=== PATIENT | female | born 1985 | race Caucasian/White ===

== ENCOUNTER → 2021-06-20 | Outpatient (REF) | payer OTHER ==
[2021-06-20 16:18] LABS: BASO % 0.5 % (0.0-1.0); EOS # 0.2 10^3/uL (0.0-0.5); EOS % 2.8 % (0.0-3.0); HEMATOCRIT 42.7 % (36.0-47.0); HEMOGLOBIN 13.8 g/dl (12.0-15.5); LYMPH # 1.9 10^3/uL (1.5-5.0); LYMPH % 23.6 % (24.0-44.0); MEAN CORPUSCULAR HEMOGLOBIN 30.9 pg (27.0-33.0); MEAN CORPUSCULAR HGB CONC 32.3 g/dl (32.0-36.5); MEAN CORPUSCULAR VOLUME 95.7 fl (80.0-96.0); MONO # 0.5 10^3/uL (0.0-0.8); MONO % 5.7 % (2.0-8.0); NEUTROPHILS # 5.3 10^3/uL (1.5-8.5); PLATELET COUNT, AUTOMATED 227 10^3/uL (150-450); RED BLOOD COUNT 4.46 10^6/uL (4.00-5.40); WHITE BLOOD COUNT 7.9 10^3/uL (4.0-10.0)
[2021-06-20 16:57] LABS: ALBUMIN 3.4 GM/DL (3.2-5.2); ALT/SGPT 20 U/L (12-78); BILIRUBIN,TOTAL 1.1 MG/DL (0.2-1.0); BLOOD UREA NITROGEN 11 MG/DL (7-18); CALCIUM LEVEL 9.2 MG/DL (8.5-10.1); CARBON DIOXIDE LEVEL 30 MEQ/L (21-32); CHLORIDE LEVEL 106 MEQ/L (98-107); CREATININE FOR GFR 0.56 MG/DL (0.55-1.30); FREE T4 0.89 NG/DL (0.76-1.46); GLOMERULAR FILTRATION RATE > 60.0 (>60); GLUCOSE, FASTING 82 MG/DL (70-100); IRON (FE) 82 UG/DL (50-170); MAGNESIUM LEVEL 2.1 MG/DL (1.8-2.4); PERCENT SATURATION 26.1 % (13.2-45.0); POTASSIUM SERUM 4.4 MEQ/L (3.5-5.1); SODIUM LEVEL 140 MEQ/L (136-145); TOTAL 25(OH) VITAMIN D 31.4 NG/ML (30.0-100.0); TOTAL IRON BINDING CAPACITY 314 UG/DL (250-450); TOTAL PROTEIN 6.5 GM/DL (6.4-8.2); VITAMIN B12 LEVEL 496 PG/ML (247-911)
[2021-06-20 17:49] LABS: FOLATE 14.6 NG/ML (>5.4)
== END ==
LOC: M SFHCCLAY 09:58
PROVIDERS: ATTEND Nurse Practitioner Family
DX: G43.909 Migraine, unspecified, not intractable, without status migrainosus (principal); F41.1 Generalized anxiety disorder; Z98.84 Bariatric surgery status

== ENCOUNTER → 2021-08-02 | Outpatient (CLI) | payer OTHER, MEDICAID ==
[2021-08-02 13:25] LABS: HEMATOCRIT 39.9 % (36.0-47.0); HEMOGLOBIN 13.2 g/dl (12.0-15.5); MEAN CORPUSCULAR HEMOGLOBIN 31.2 pg (27.0-33.0); MEAN CORPUSCULAR HGB CONC 33.1 g/dl (32.0-36.5); MEAN CORPUSCULAR VOLUME 94.3 fl (80.0-96.0); PLATELET COUNT, AUTOMATED 185 10^3/uL (150-450); RED BLOOD COUNT 4.23 10^6/uL (4.00-5.40); WHITE BLOOD COUNT 8.7 10^3/uL (4.0-10.0)
[2021-08-02 13:37] LABS: BLOOD UREA NITROGEN 12 MG/DL (7-18); CALCIUM LEVEL 9.2 MG/DL (8.5-10.1); CARBON DIOXIDE LEVEL 26 MEQ/L (21-32); CHLORIDE LEVEL 108 MEQ/L (98-107); CREATININE FOR GFR 0.54 MG/DL (0.55-1.30); GLOMERULAR FILTRATION RATE > 60.0 (>60); GLUCOSE, FASTING 76 MG/DL (70-100); POTASSIUM SERUM 4.1 MEQ/L (3.5-5.1); SODIUM LEVEL 139 MEQ/L (136-145)
[2021-08-02 14:27] LABS: HEPATITIS C VIRUS ABY INDEX < 0.0 INDEX (<0.8)
[2021-08-02 14:28] LABS: HIV 1&2 SCREEN CENTAUR NEGATIVE (NEGATIVE)
[2021-08-02 22:58] LABS: GC DNA AMPLIFICATION NEGATIVE (NEGATIVE)
== END ==
LOC: M PLALAB 10:20
PROVIDERS: ATTEND Specialist
DX: Z34.81 Encounter for supervision of other normal pregnancy, first trimester (principal); Z3A.00 Weeks of gestation of pregnancy not specified

== ENCOUNTER → 2021-10-22 | Outpatient (CLI) | payer OTHER, MEDICAID | LOC: M WHC 09:50 | PROVIDERS: ATTEND Obstetrics & Gynecology | DX: Z36.89 Encounter for other specified antenatal screening (principal); Z3A.17 17 weeks gestation of pregnancy ==

== ENCOUNTER 2021-11-27 13:26 | Emergency (ER) | payer OTHER, MEDICAID ==
[~2021-11-27] VITALS: Ht 152.4 cm; Wt 92.8 kg
[2021-11-27 16:25] VITALS: BP 94/62
== END 2021-11-27 16:39 | disposition home or self-care (01) ==
LOC: M ED 13:26
DX: O26.892 Other specified pregnancy related conditions, second trimester (principal); R22.41 Localized swelling, mass and lump, right lower limb; M79.661 Pain in right lower leg; Z3A.26 26 weeks gestation of pregnancy

== ENCOUNTER → 2022-02-13 | Outpatient (REF) | payer OTHER, MEDICAID | LOC: M SFHCWAGY 13:03 | PROVIDERS: ATTEND Specialist | DX: Z34.83 Encounter for supervision of other normal pregnancy, third trimester (principal) ==

== ENCOUNTER → 2022-03-03 | Outpatient (CLI) | payer OTHER, MEDICAID ==
[~2022-03-03] MED LIST: MULTTAB20 PO
== END ==
LOC: M LABSMTC 09:31
PROVIDERS: ATTEND Anesthesiology
DX: Z01.812 Encounter for preprocedural laboratory examination (principal)

== ENCOUNTER 2022-03-07 05:19 | Inpatient (IN) | payer OTHER, MEDICAID ==
[~2022-03-07] VITALS: Ht 154.9 cm; Wt 95.6 kg
[2022-03-07] VITALS (7 sets, daily range): BP systolic 109–135; BP diastolic 54–68
[2022-03-07] MEDS ORDERED: LACTATED RINGER'S 1000 ML IV STA (05:40)
[2022-03-07] MEDS ORDERED: TUMS500C PO (05:42)
[2022-03-07] MEDS ORDERED: HOME MED LIST COMPLETE! XX SCH (05:45)
[2022-03-07] MEDS ORDERED: BICITRA 30ML SOLN UDC PO ONE (06:00)
[2022-03-07 06:26] LABS: HEMATOCRIT 30.9 % (36.0-47.0); HEMOGLOBIN 9.6 g/dl (12.0-15.5); MEAN CORPUSCULAR HEMOGLOBIN 25.1 pg (27.0-33.0); MEAN CORPUSCULAR HGB CONC 31.1 g/dl (32.0-36.5); MEAN CORPUSCULAR VOLUME 80.7 fl (80.0-96.0); PLATELET COUNT, AUTOMATED 178 10^3/uL (150-450); RED BLOOD COUNT 3.83 10^6/uL (4.00-5.40); WHITE BLOOD COUNT 9.2 10^3/uL (4.0-10.0)
[2022-03-07] MEDS ORDERED: ceFAZolin SOD 2 GM in IV 1 EA IV ONE (07:00)
[2022-03-07] MEDS ORDERED: OXYTOCIN INJ 10 UNITS/ML VIAL (J2590) As Ordered ONE ×2 (07:14→07:15)
[2022-03-07] MEDS ORDERED: MORPHINE PRES-FREE INJ 10 MG/10 ML VIAL As Ordered ONE (07:22)
[2022-03-07] MEDS ORDERED: ONDANSETRON 4MG 2ML VIAL As Ordered ONE (08:12)
[2022-03-07] MEDS ORDERED: dexameTHASONE 4 MG/ML 1ML VIAL (J1100 PER 1MG) As Ordered ONE (08:12)
[2022-03-07] MEDS ORDERED: propofoL 200 MG/20 ML VIAL As Ordered ONE (08:32)
[2022-03-07] MEDS ORDERED: ACETAMINOPHEN 1000MG 100ML IV BTL (OFIRMEV) (J0131 PER 10MG) As Ordered ONE (08:50)
[2022-03-07] MEDS ORDERED: PHENYLephrine 500MCG 5ML (100MCG/ML) SYRINGE As Ordered ONE (08:50)
[2022-03-07] MEDS ORDERED: ePHEDrine SULFATE 25 MG/5 ML(5MG/ML) SYRINGE As Ordered ONE (08:50)
[2022-03-07] MEDS ORDERED: NALOXONE INJ 0.4MG/1ML VIAL (J2310 PER 1MG) IV PRN ×2 (08:55)
[2022-03-07] MEDS ORDERED: MEPERIDINE INJ 25 MG/ML VIAL (J2175) IV PRN (08:55)
[2022-03-07] MEDS ORDERED: diphenhydrAMINE 50MG/ML VIAL (J1200) IV PRN (08:55)
[2022-03-07] MEDS ORDERED: fentaNYL 100 MCG/2 ML INJECTION IV PRN (08:55)
[2022-03-07] MEDS ORDERED: oxyCODONE 5MG TAB PO PRN ×2 (08:55)
[2022-03-07] MEDS ORDERED: **NOTE PATIENT COMMENT** MISC XX SCH (08:55)
[2022-03-07] MEDS ORDERED: METOCLOPRAMIDE INJ 10MG/2ML VIAL (J2765 PER 1) IV PRN ×2 (08:55)
[2022-03-07] MEDS ORDERED: SIMETHICONE 80MG CHEW TAB PO PRN (08:55)
[2022-03-07] MEDS ORDERED: RHOGAM 300 MCG (1500 IU) INJ (J2790) IM SCH (08:55)
[2022-03-07] MEDS ORDERED: ONDANSETRON 4MG ORAL DISINTEGRATING TAB PO PRN (08:55)
[2022-03-07] MEDS ORDERED: LR 1,000 ML IV SCH ×2 (08:55)
[2022-03-07] MEDS ORDERED: ACETAMINOPHEN 500 MG TAB PO PRN (08:55)
[2022-03-07] MEDS ORDERED: OXYTOCIN DRIP 30 UNITS in IV 1 EA IV SCH (08:55)
[2022-03-07] MEDS ORDERED: ONDANSETRON 4MG 2ML VIAL IV PRN (08:55)
[2022-03-07] MEDS: PRENATAL VITAMINS CHEWABLE TABLET PO SCH (09:00)
[2022-03-07] MEDS ORDERED: OXYC-517 PO (09:01)
[2022-03-07] MEDS ORDERED: oxyCODONE 5MG TAB As Ordered ONE ×2 (09:28→09:32)
[2022-03-07] MEDS ORDERED: OXYTOCIN 30 UNITS IN 0.9% NaCl 500ML IV BAG (J2590) As Ordered ONE (09:29)
[2022-03-07] MEDS: oxyCODONE 5MG TAB PO PRN ×2 (09:31→21:56)
[2022-03-07] MEDS ORDERED: KETOROLAC 30 MG/ML 1ML VIAL IV SCH (11:00)
[2022-03-07] MEDS: SLF 3 ML SYR IV SCH ×3 (11:49→23:05)
[2022-03-08 02:00] VITALS: BP 123/60
[2022-03-08 06:00] VITALS: BP 125/56
[2022-03-08 08:14] LABS: HEMATOCRIT 29.3 % (36.0-47.0); HEMOGLOBIN 8.6 g/dl (12.0-15.5); MEAN CORPUSCULAR HEMOGLOBIN 24.8 pg (27.0-33.0); MEAN CORPUSCULAR HGB CONC 29.4 g/dl (32.0-36.5); MEAN CORPUSCULAR VOLUME 84.4 fl (80.0-96.0); PLATELET COUNT, AUTOMATED 143 10^3/uL (150-450); RED BLOOD COUNT 3.47 10^6/uL (4.00-5.40); WHITE BLOOD COUNT 11.6 10^3/uL (4.0-10.0)
[2022-03-08] MEDS: PRENATAL VITAMINS CHEWABLE TABLET PO SCH (09:40)
[2022-03-08 10:05] VITALS: BP 103/55
[2022-03-08 14:00] VITALS: BP 100/56
[2022-03-09] MEDS ORDERED: MEASLES,MUMPS,RUBELLA VACCINE INJ (MMR-II) (90707) SC.IMMUN ONE (09:00)
== END 2022-03-08 18:40 | disposition home or self-care (01) | DRG 788 ==
LOC: M LDI 05:19 → M OBS 10:33
PROVIDERS: ADMIT Specialist; ATTEND Specialist
PROC: 10D00Z1 Extraction of Products of Conception, Low, Open Approach (ICD-10-PCS; principal; 2022-03-07 07:30)
DX: O34.211 Maternal care for low transverse scar from previous cesarean delivery (principal); Z3A.39 39 weeks gestation of pregnancy; Z37.0 Single live birth

== ENCOUNTER → 2022-08-25 | Outpatient (CLI) | payer MEDICAID, OTHER ==
[~2022-08-25] MED LIST changes: +OXYC-517 PO; +TUMS500C PO
== END ==
LOC: M PLAIMG 06:52
PROVIDERS: ATTEND Nurse Practitioner Family
DX: G43.909 Migraine, unspecified, not intractable, without status migrainosus (principal)